=== PATIENT | female | born 1995 | race Caucasian/White ===

== ENCOUNTER 2021-01-29 22:01 | Emergency (ER) | payer SELFPAY ==
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
[2021-01-29 22:06] VITALS: BP 132/95; PULSE 109; RESP 18; TEMP 36.2; O2SAT 99
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
--- NOTE | 2021-01-29 22:27 | ED.FEMALEGU ---
HPI - Female Genitourinary General Chief complaint: Urogenital-Female Stated complaint: STD check Time Seen by Provider: 01/29/21 22:18 Source: patient Mode of arrival: ambulatory Limitations: no limitations History of Present Illness HPI Narrative: Patient is a 25-year-old female complaining of dysuria, vaginal discharge and also wants an STD test. Patient denies any abdominal pain, back pain, nausea, vomiting, fever or chills. Related Data Allergies Allergy/AdvReac Type Severity Reaction Status Date / Time No Known Allergies Allergy Verified 01/29/21 22:13 Review of Systems Review of Systems: All systems reviewed & are unremarkable except as noted in HPI and below PMFSH Social History Social History Gender identity (if verbalized by the patient): Female Comments Past medical history: None Family history: Noncontributory Social history non-smoker no EtOH or drug use. Exam Const: General: cooperative, healthy appearing, comfortable, no acute distress, well developed, alert and awake; No confusion Orientation/consciousness: oriented to person, oriented to place, oriented to time, patient oriented x3 and No confusion Limitations: no limitations HENMT: Head: normal to inspection, normocephalic and atraumatic Ears: hearing grossly normal bilaterally, TM normal on the right and TM normal on the left General nose exam: Normal external nose present, Normal nares present and No nasal discharge present Face and sinus: normal facial exam Mouth: Yes Normal oral and palatal mucosa present, Yes lip normal, Yes tongue normal and Yes oropharynx normal Throat: posterior oropharynx normal, tonsils normal and uvula midline Eyes: General: appearance normal, both eyes and all related structures Pupils: Equal, round and reactive pupils present EOM: EOMs intact bilaterally Neck: Neck: normal visual inspection, full ROM, no lymphadenopathy and no meningeal signs Chest: Chest palpation & inspection: normal inspection of the chest Resp: Effort & Inspection: normal respiratory effort, able to speak in complete sentences, no respiratory distress and not tachypneic Auscultation: clear to auscultation bilaterally, no crackles, no rales, no rhonchi and no wheezes Cardio: Rate: regular rate Rhythm: regular rhythm GI: Inspection: normal to inspection GI Palp: No abdominal tenderness, Yes Soft to palpation, No Tenderness to palpation present (GI), No Guarding due to palpation present (GI), No Rigid due to palpation and No Rebound tenderness present Auscultation: normal bowel sounds : General: Yes no CVA tenderness Back/Spine/Pelvis: Back: no CVA tenderness Skin: General skin exam: normal color, no rashes or lesions noted, elasticity normal and turgor normal Neuro: General: oriented to person, oriented to place, oriented to time, patient oriented x3, tone normal, moves all extremities, Normal light touch and pain sensation, no meningeal signs, no focal motor deficits, CN's II-XI intact bilaterally and No confusion Cranial nerves: Yes Equal, round and reactive pupils present Speech: No Abnormal speech present Sensory Exam: No Sensory deficit (Neuro) Extrem: General: normal to inspection, full ROM and capillary refill normal Psych: Appearance: grossly normal and well kempt Mental Status: mental status grossly normal Speech and movement: Normal speech and movement present Affect: normal affect Attitude: cooperative Thought process: Normal thought process present Thought content: Yes Normal thought content present Insight: Good insight present (Psych) Judgement: Good judgement present (Psych) Course Vital Signs Vital signs: Vital Signs Temperature 36.2 C L 01/29/21 22:06 Pulse Rate 109 H 01/29/21 22:06 Respiratory Rate 18 01/29/21 22:06 Blood Pressure 132/95 H 01/29/21 22:06 Pulse Oximetry 99 01/29/21 22:06 Temperature 36.2 C L 01/29/21 22:06 Pulse Rate 109 H 01/29/21 22:06 Respiratory Rate 18 04/0
--- NOTE | 2021-01-29 23:05 | PC.NURSE ---
pt presented to nurses station and questioning when will she receive her lab results. Pt advised that results are still pending and was escorted back to room. Pt resting on cart in its lowest position with call button and personal items within reach.
[2021-01-29 23:12] LABS: Add Urine Microscopic? YES; Appearance Urine Cloudy (Clear); Bacteria Urine Trace /hpf; Bilirubin Urine Negative (Negative); Color Urine Amber (Yellow); Glucose Urine UA Negative (Negative); Ketones Urine 1+ mg/dL (Negative); Leukocyte Esterase Ur 3+ LEU/UL (Negative); Mucus Urine Heavy /lpf; Nitrate Urine Positive (Negative); Protein Urine 2+ mg/dL (Negative); Squamous Epithelial Cell Urine Many /hpf (Few); WBC Urine 51-75 /hpf
[2021-01-29 23:28] LABS: Blood Urine Negative (Negative); Specific Grav Ur 1.033 (1.001-1.035)
--- NOTE | 2021-01-29 23:37 | PC.NURSE ---
Pt [resented to nurse's station and requesting to go outside to smoke a cigarette and then return to ED. Pt advised that she cannot leave and is was escorted back to her room and is now resting on cart in its lowest position with call button and personal items within reach.
--- NOTE | 2021-01-29 23:40 | PC.NURSE ---
Pt. standing at the door without a mask on. pt. states she has a medical condition and cannot wear her mask. pt. instructed to return to her room. Pt. returned to room.
--- NOTE | 2021-01-29 23:45 | PC.NURSE ---
PT. standing outside of room again. PT. asked to return to room. pt. states I am not outside of my room. I am right here in the door. Don't tell me what to do.
--- NOTE | 2021-01-29 23:50 | PC.NURSE ---
PT. standing at nursing station asking for antibiotic because she has to go. RN informed pt. that Her RN will be in shortly. PT. then states Shut the fuck up. You are extremely unprofessional. You can't be calling me a skank or a slut. You can't cuss at me like that.
[2021-01-30 00:04] VITALS: BP 128/89; PULSE 74; RESP 20; TEMP 36.9; O2SAT 98
--- NOTE | 2021-01-30 00:12 | PC.NURSE ---
pt came to the nurses station yelling about wanting to leave. I let her know when her nurse got out of a room with another pt that i would send her in to speak with her. I also asked if she would please go to her room since she is not masked and we are trying to prevent anymore spreading of covid. pt became agitated asking if angelica would like to step outside. Again I asked her to go to her room that her nurse would be in to talk with her. She asked me if i wanted to step outside and talk Katy (pt nurse) brought her back to her room and pt was discharged shortly after
--- NOTE | 2021-01-30 00:57 | PC.NURSE ---
Pt resting presented to nurses station and is questioning if she can leave to smoke a cigarette and then return to ED. Pt advised that she cannot leave ED and that she will be discharged soon. Pt voiced her understanding and is now back in room resting on cart.
== END 2021-01-30 00:12 | disposition home or self-care (01) ==
PROVIDERS: Emergency Provider Emergency Medicine
DX: N39.0 Urinary tract infection, site not specified (principal)
CPT/HCPCS: 81001; 81025; 87077; 87086; 87088; 87186; 99283

== ENCOUNTER 2021-02-03 20:05 | Emergency (ER) | payer SELFPAY ==
[2021-02-03 20:15] VITALS: BP 112/69; PULSE 110; RESP 20; TEMP 36.4; O2SAT 99
[2021-02-03 21:33] LABS: Add Urine Microscopic? YES; Appearance Urine Cloudy (Clear); Bacteria Urine Trace /hpf; Bilirubin Urine Negative (Negative); Color Urine Yellow (Yellow); Glucose Urine UA Negative (Negative); Ketones Urine Negative (Negative); Leukocyte Esterase Ur 3+ LEU/UL (Negative); Mucus Urine Rare /lpf; Nitrate Urine Negative (Negative); Protein Urine Negative (Negative); Specific Grav Ur 1.009 (1.001-1.035); Squamous Epithelial Cell Urine Many /hpf (Few); Urobilinogen Urine Negative mg/dL (<2.0); WBC Urine 31-50 /hpf
[2021-02-03 21:47] LABS: Blood Urine Negative (Negative)
--- NOTE | 2021-02-03 22:29 | ED.FEMALEGU ---
HPI - Female Genitourinary General Chief complaint: Urogenital-Female Stated complaint: UTI, pain with urination. Time Seen by Provider: 02/03/21 22:16 Source: patient Mode of arrival: ambulatory Limitations: no limitations History of Present Illness HPI Narrative: Patient is a 25-year-old female complaining of dysuria and vaginal pain x1 week. Patient states that she was seen here 4 days ago for the same complaint was placed on oral antibiotics which she started 3 days ago and claims that she is not any better and now having some whitish discharge and vaginal itching. Patient does not know what antibiotic she was placed on. Patient was given Bactrim x5 days. I reviewed her culture and sensitivity results and it was positive for E. coli which is sensitive to Bactrim. Related Data Allergies Allergy/AdvReac Type Severity Reaction Status Date / Time No Known Allergies Allergy Verified 02/03/21 20:18 [facility] Social History Social History Gender identity (if verbalized by the patient): Female Comments Past medical history: None Family history: Negative for diabetes or hypertension Social history: Positive for smoker, denies any EtOH or drug use. Exam Const: General: cooperative, healthy appearing, comfortable, no acute distress, well developed, alert and awake; No confusion Orientation/consciousness: oriented to person, oriented to place, oriented to time, patient oriented x3 and No confusion Limitations: no limitations HENMT: Head: normal to inspection, normocephalic and atraumatic Ears: hearing grossly normal bilaterally, TM normal on the right and TM normal on the left General nose exam: Normal external nose present, Normal nares present and No nasal discharge present Face and sinus: normal facial exam Mouth: Yes Normal oral and palatal mucosa present, Yes lip normal, Yes tongue normal and Yes oropharynx normal Throat: posterior oropharynx normal, tonsils normal and uvula midline Eyes: General: appearance normal, both eyes and all related structures Pupils: Equal, round and reactive pupils present EOM: EOMs intact bilaterally Neck: Neck: normal visual inspection, full ROM and no meningeal signs Chest: Chest palpation & inspection: normal inspection of the chest Resp: Effort & Inspection: normal respiratory effort, able to speak in complete sentences, no respiratory distress and not tachypneic Auscultation: clear to auscultation bilaterally, no crackles, no rales, no rhonchi and no wheezes Cardio: Rate: regular rate Rhythm: regular rhythm GI: Inspection: normal to inspection GI Palp: No abdominal tenderness, Yes Soft to palpation, No Tenderness to palpation present (GI), No Guarding due to palpation present (GI), No Rigid due to palpation and No Rebound tenderness present Auscultation: normal bowel sounds : General: Yes no CVA tenderness Back/Spine/Pelvis: Back: no CVA tenderness Skin: General skin exam: normal color, no rashes or lesions noted, elasticity normal and turgor normal Neuro: General: oriented to person, oriented to place, oriented to time, patient oriented x3, tone normal, moves all extremities, no meningeal signs, no focal motor deficits and No confusion Cranial nerves: Yes Equal, round and reactive pupils present Speech: No Abnormal speech present Sensory Exam: No Sensory deficit (Neuro) Extrem: General: normal to inspection, full ROM and capillary refill normal Psych: Appearance: grossly normal and well kempt Mental Status: mental status grossly normal Speech and movement: Normal speech and movement present Affect: normal affect Attitude: cooperative Thought process: Normal thought process present Thought content: Yes Normal thought content present Insight: Good insight present (Psych) Judgement: Good judgement present (Psych) Course Vital Signs Vital signs: Vital Signs Temperature 36.4 C 02/03/21 20:15 Pulse Rate 110 H 02/03/21 20:15 Respiratory Rate 20 02/03/21 20:15
[2021-02-03] MEDS: KETOROLAC 30 MG/ML VIAL (*BKC) IM (22:41)
[2021-02-03 23:07] VITALS: BP 113/58; PULSE 89; RESP 16; O2SAT 99
== END 2021-02-03 23:07 | disposition home or self-care (01) ==
PROVIDERS: Emergency Provider Emergency Medicine
DX: N39.0 Urinary tract infection, site not specified (principal); N76.0 Acute vaginitis
CPT/HCPCS: 81001; 81025; 87086; 87088; 96372; 99283; J1885

== ENCOUNTER 2023-06-28 03:52 | Emergency (ER) | payer OTHER, SELFPAY ==
--- NOTE | 2023-06-28 04:06 | PC.NURSE ---
Pt called for triage, no answer. Pt noted in waiting room with blanket over head. Pt states she no longer wants to be seen by provider, stating cant I sit here and wait for a ride? . Pt denies SI/HI. A&Ox4.
== END 2023-06-28 04:18 | disposition left against medical advice (07) ==
LOC: ANHED 04:16
DX: Z53.21 Procedure and treatment not carried out due to patient leaving prior to being seen by health care provider (principal)
CPT/HCPCS: 99199

== ENCOUNTER 2023-06-28 06:33 | Emergency (ER) | payer OTHER, SELFPAY ==
[2023-06-28 06:39] VITALS: BP 108/83; PULSE 112; RESP 16; TEMP 36.6; O2SAT 100
--- NOTE | 2023-06-28 06:48 | PC.NURSE ---
Pt seen ambulating out of ED. This RN asked pt is she still would like to be seen by provider. Pt states no as she ambulated out of ED.
--- NOTE | 2023-06-28 07:14 | PC.NURSE ---
Pt left property per employee service officer.
== END 2023-06-28 08:15 | disposition left against medical advice (07) ==
LOC: ANHED 07:56
DX: R46.89 Other symptoms and signs involving appearance and behavior (principal)
CPT/HCPCS: 99199

== ENCOUNTER 2024-05-05 19:11 | Emergency (ER) | payer OTHER, SELFPAY | END 2024-05-05 19:52 | disposition left against medical advice (07) | LOC: ANHED 19:31 | DX: Z53.21 Procedure and treatment not carried out due to patient leaving prior to being seen by health care provider (principal) | CPT/HCPCS: 99199 ==